=== PATIENT | female | born 1930 | race Caucasian/White ===

== ENCOUNTER 2019-03-27 16:42 | Inpatient (IN) | payer MEDICARE, OTHER, MEDICAID ==
[2019-03-27 17:29] LABS: ADD MAN DIFF? NO
[2019-03-27 17:33] LABS: WHITE BLOOD COUNT 15.1 10^3/ul (4.8-10.8)
[2019-03-27 17:33] LABS: BASOPHIL # 0.1 10^3/ul (0.0-0.1); BASOPHILS % 0.3 % (0.0-2.0); EOSINOPHILS # 0.2 10^3/ul (0.0-0.5); EOSINOPHILS % 1.6 % (0.0-7.0); HEMOGLOBIN 11.1 g/dl (12.0-16.0); LYMPHOCYTES # 1.8 10^3/ul (0.8-2.9); MEAN CORPUSCULAR HEMOGLOBIN 29.4 pg (29.0-33.0); MEAN CORPUSCULAR HGB CONC 30.8 g/dl (32.0-37.0); MEAN CORPUSCULAR VOLUME 95.2 fl (82.0-101.0); MEAN PLATELET VOLUME 11.3 fl (7.4-10.4); MONOCYTE # 1.2 10^3/ul (0.3-0.9); NEUTROPHIL # 11.7 10^3/ul (1.6-7.5); NEUTROPHILS % 77.7 % (39.0-77.0); PLATELET COUNT 518 10^3/UL (140-415); RED BLOOD COUNT 3.78 10^6/ul (4.20-5.40); RED CELL DISTRIBUTION WIDTH 17.5 % (11.5-14.5)
[2019-03-27] MEDS: SOD CHLORIDE 0.9% 500 ML IV (17:41)
[2019-03-27 17:51] LABS: ALANINE AMINOTRANSFERASE 8 IU/L (13-69); ALBUMIN 2.8 g/dl (3.3-4.9); ALKALINE PHOSPHATASE 165 IU/L (42-121); ANION GAP 5 (5-13); ASPARTATE AMINO TRANSFERASE 22 IU/L (15-46); BILIRUBIN,INDIRECT 0.1 mg/dl (0-1.1); BILIRUBIN,TOTAL 0.1 mg/dl (0.2-1.3); BLOOD UREA NITROGEN 26 mg/dl (7-20); CALCIUM 10.2 mg/dl (8.4-10.2); CARBON DIOXIDE 27 mmol/L (21-31); CHLORIDE 110 mmol/L (97-110); CREATININE 0.76 mg/dl (0.44-1.00); GLUCOSE 130 mg/dl (70-220); LIPASE 26 U/L (23-300); POTASSIUM 4.6 mmol/L (3.5-5.1); SODIUM 142 mmol/L (135-144); TOTAL PROTEIN 7.4 g/dl (6.1-8.1)
[2019-03-27 18:02] LABS: TROPONIN-I < 0.012 ng/ml (0.000-0.120)
[2019-03-27 18:13] LABS: ADD UMIC YES; UR ASCORBIC ACID 20 mg/dL (NEGATIVE); UR BACTERIA MODERATE /HPF (NONE SEEN); UR BILIRUBIN (Dip) NEGATIVE (NEGATIVE); UR BLOOD (Dip) 1+ mg/dL (NEGATIVE); UR BUDDING YEAST FEW /HPF (NONE SEEN); UR CLARITY TURBID (CLEAR); UR COLOR YELLOW (YELLOW); UR GLUCOSE (Dip) NEGATIVE (NEGATIVE); UR KETONES (Dip) NEGATIVE (NEGATIVE); UR LEUKOCYTE ESTERASE (Dip) 3+ Leu/ul (NEGATIVE); UR MUCUS MODERATE /HPF (NONE SEEN); UR NITRITE (Dip) NEGATIVE (NEGATIVE); UR NONSQUAMOUS EPITHELIAL CELL 2 /HPF (NONE SEEN); UR RBC 44 /HPF (0-5); UR SPECIFIC GRAVITY (Dip) 1.018 (1.003-1.030); UR SQUAMOUS EPITHELIAL CELL MODERATE /HPF (FEW); UR TOTAL PROTEIN (Dip) 2+ mg/dl (NEGATIVE); UR UROBILINOGEN (Dip) NEGATIVE (NEGATIVE); UR WBC > 182 /HPF (0-5)
[2019-03-27] MEDS ORDERED: CEFTRIAXONE 1 GM/50 ML (PMX) 50 ML IVPB (18:30)
[2019-03-27] MEDS: AZTREONAM 2 GM in SOD CHLORIDE 0.9% 100 ML IVPB ×2 (18:57→22:42)
[2019-03-27] MEDS: VANCOMYCIN 1 GM (PMX) 250 ML IVPB (19:03)
[2019-03-27] MEDS ORDERED: PROPOFOL 100 ML (19:24)
[2019-03-27] MEDS: PROPOFOL 100 ML IV (19:26)
[2019-03-27] MEDS: AMIODARONE 150MG/D5W BOLUS 100 ML IV (19:30)
[2019-03-27] MEDS ORDERED: NORepinephrine 8MG/250 ML (PMX 250 ML (19:30)
[2019-03-27] MEDS: NORepinephrine 8MG/250 ML (PMX 250 ML IV (19:35)
[2019-03-27] MEDS ORDERED: AMIODARONE 150 MG INJ (20:00)
[2019-03-27] MEDS ORDERED: DEXTROSE 50% 50 ML SYRINGE (20:00)
[2019-03-27] MEDS ORDERED: NA BICARBONATE 8.4% 50 ML SYG (20:00)
[2019-03-27] MEDS ORDERED: EPINEPHrine 10 MCG/1ml (10 ML SYG) IV (20:00)
[2019-03-27] MEDS ORDERED: CA CHLORIDE 10% 10 ML SYRINGE (20:00)
[2019-03-27] MEDS: FENTAnyl 50 MCG/ML VIAL IV (20:47)
[2019-03-27] MEDS: FENTAnyl (DRIP) 1000 mcg/100mL 100 ML IV (21:19)
[2019-03-27 21:23] LABS: AADO2 Arterial 361.3 mmHg (7.0-24.0); Arterial Base Excess -5.8 mmol/L (-3.0-3); Arterial Blood Gas Oxygen Sat 99.6 mmHG (95.0-100.0); Arterial COHb 0.2 % (0.0-3.0); Arterial Fraction of Oxyhgb 99.2 % (93.0-99.0); Arterial HCO3 18.9 mmol/L (22.0-26.0); Arterial MetHb 0.2 % (0.0-1.5); Arterial pCO2 34.4 mmhg (35-45); MODE VENT - AC; Site Right Brachial
[2019-03-27] MEDS: VASOPRESSIN 60 UNIT in SOD CHLORIDE 0.9% 57 ML IV (22:54)
[2019-03-27] MEDS: AMIODARONE 900 MG in DEXTROSE 5% 482 ML IV ×2 (23:09→23:51)
[2019-03-28] MEDS: PROPOFOL 100 ML IV (02:30)
[2019-03-28] MEDS: VASOPRESSIN 60 UNIT in DEXTROSE 5% 57 ML IV (03:30)
[2019-03-28] MEDS ORDERED: EPINEPHrine 4 MG in DEXTROSE 5% 246 ML IV (03:30)
[2019-03-28] MEDS ORDERED: PHENYLephrine 80 MG in DEXTROSE 5% 242 ML IV (03:30)
[2019-03-28] MEDS ORDERED: DEXTROSE 50% 50 ML SYRINGE IV ×2 (04:00)
[2019-03-28] MEDS ORDERED: FENTAnyl (DRIP) 1000 mcg/100mL 100 ML IV (04:00)
[2019-03-28] MEDS ORDERED: GLUCOSE GEL 15 GRAM TUBE PO ×2 (04:00)
[2019-03-28] MEDS ORDERED: GLUCOSE GEL 15 GRAM TUBE BUCCAL (04:00)
[2019-03-28] MEDS ORDERED: GLUCAGON 1 MG INJ IM (04:00)
[2019-03-28] MEDS: SOD CHLORIDE 0.9% 1,000 ML IV (04:26)
[2019-03-28] MEDS: NORepinephrine 8MG/250 ML (PMX 250 ML IV (04:27)
[2019-03-28] MEDS ORDERED: VANCOMYCIN IV PER PHARMACY XX (04:30)
[2019-03-28] MEDS: PIPER-TAZO 3.375 GM IV (PMX) 100 ML IVPB (05:56)
[2019-03-28] MEDS: INSULIN ASPART [NOVOLOG] 3 ML PEN SC (05:57)
[2019-03-28] MEDS ORDERED: SOD CHLORIDE 0.9% IV (06:00)
[2019-03-28] MEDS ORDERED: EPINEPHRINE IV (06:00)
[2019-03-28] MEDS ORDERED: PANTOPRAZOLE 40 MG INJ IV (06:00)
[2019-03-28 07:24] LABS: AADO2 Arterial 129.9 mmHg (7.0-24.0); Allen Test ACCEPTAB; Arterial Base Excess -13.2 mmol/L (-3.0-3); Arterial Blood Gas Oxygen Sat 97.7 mmHG (95.0-100.0); Arterial COHb 0.3 % (0.0-3.0); Arterial Fraction of Oxyhgb 97.3 % (93.0-99.0); Arterial MetHb 0.1 % (0.0-1.5); Arterial pCO2 31.2 mmhg (35-45); MODE VENT - AC; Site Left Radial
[2019-03-28 07:34] LABS: ABNORMAL IP MESSAGE 1; HEMATOCRIT 33.8 % (37.0-47.0); HEMOGLOBIN 9.9 g/dl (12.0-16.0); MEAN CORPUSCULAR HEMOGLOBIN 29.6 pg (29.0-33.0); MEAN CORPUSCULAR HGB CONC 29.3 g/dl (32.0-37.0); MEAN CORPUSCULAR VOLUME 100.9 fl (82.0-101.0); MEAN PLATELET VOLUME 11.2 fl (7.4-10.4); NUCLEATED RED BLOOD CELLS% 0.1 /100WBC (0.0-0.0); PLATELET COUNT 397 10^3/UL (140-415); RED BLOOD COUNT 3.35 10^6/ul (4.20-5.40); RED CELL DISTRIBUTION WIDTH 17.9 % (11.5-14.5)
[2019-03-28 07:34] LABS: WHITE BLOOD COUNT 36.3 10^3/ul (4.8-10.8)
[2019-03-28 07:47] LABS: ADD MAN DIFF? YES; POSITIVE DIFF @See below
[2019-03-28 08:00] LABS: ALANINE AMINOTRANSFERASE 20 IU/L (13-69); ALBUMIN 2.4 g/dl (3.3-4.9); ALBUMIN/GLOBULIN RATIO 0.64; ALKALINE PHOSPHATASE 154 IU/L (42-121); ANION GAP 15 (5-13); ASPARTATE AMINO TRANSFERASE 62 IU/L (15-46); BILIRUBIN,INDIRECT 0.1 mg/dl (0-1.1); BILIRUBIN,TOTAL 0.1 mg/dl (0.2-1.3); BLOOD UREA NITROGEN 27 mg/dl (7-20); CALCIUM 10.3 mg/dl (8.4-10.2); CARBON DIOXIDE 16 mmol/L (21-31); CHLORIDE 114 mmol/L (97-110); CREATININE 1.21 mg/dl (0.44-1.00); GLUCOSE 199 mg/dl (70-220); MAGNESIUM 2.1 mg/dl (1.7-2.5); SODIUM 145 mmol/L (135-144); TOTAL PROTEIN 6.1 g/dl (6.1-8.1)
[2019-03-28 08:02] LABS: LACTIC ACID 11.3 mmol/L (0.5-2.0)
[2019-03-28] MEDS: FAMOTIDINE 20 MG INJ IV (08:41)
[2019-03-28] MEDS: VANCOMYCIN 500 MG (PMX) 100 ML IVPB (08:41)
[2019-03-28] MEDS ORDERED: ATROPINE 1 MG/10 ML SYRINGE (09:55)
[2019-03-28] MEDS: NORepinephrine 32 MG in DEXTROSE 5% 218 ML IV (09:57)
[2019-03-28] MEDS ORDERED: DOPamine-D5W 1.6 MG/ML 250 ML IV (10:00)
[2019-03-28] MEDS ORDERED: ATROPINE 1 MG INJ IV (10:00)
[2019-03-28] MEDS: DOPamine-D5W 1.6 MG/ML 250 ML IV (10:55)
[2019-03-28] MEDS: ATROPINE 1 MG/10 ML SYRINGE IV (10:56)
[2019-03-28 11:18] LABS: ANISOCYTOSIS 1+ (0-0); BAND NEUTROPHILS #M 9.4 10^3/ul (0.0-0.6); BAND NEUTROPHILS % (M) 26 % (0-4); BURR CELLS 1+ (0-0); EOSINOPHILS % (M) 1 % (0-7); GIANT THROMBO% (M) 1 % (0-0); LYMPHOCYTES #M 3.2 10^3/ul (0.8-2.9); LYMPHOCYTES % (M) 9 % (15-51); MONOCYTE #M 2.5 10^3/ul (0.3-0.9); MONOCYTES % (M) 7 % (0-11); PLATELET ESTIMATE NORMAL; POIKILOCYTOSIS 2+ (0-0); POLYCHROMASIA 3+ (0-0); SEG NEUT #M 24.1 10^3/ul (1.6-7.5); SEGMENTED NEUTROPHILS (M) % 57 % (39-77); SMUDGE%M 7 % (0-0)
[2019-03-28] MEDS ORDERED: VANCOMYCIN HCL 1.5 GM in SOD CHLORIDE 0.9% 250 ML IVPB (12:00)
[2019-03-29] MEDS ORDERED: VANCOMYCIN 1 GM 250 ML IVPB (09:00)
== END 2019-03-28 12:05 | disposition expired | DRG 872 ==
LOC: ICU 19:35 → E/R 16:42
PROC: 0BH17EZ Insertion of Endotracheal Airway into Trachea, Via Natural or Artificial Opening (ICD-10-PCS; principal; 2019-03-27)
PROC: 5A1935Z Respiratory Ventilation, Less than 24 Consecutive Hours (ICD-10-PCS; 2019-03-27)
PROC: 4A133R1 Monitoring of Arterial Saturation, Peripheral, Percutaneous Approach (ICD-10-PCS; 2019-03-27)
PROC: 05H633Z Insertion of Infusion Device into Left Subclavian Vein, Percutaneous Approach (ICD-10-PCS; 2019-03-27)
DX: A41.9 Sepsis, unspecified organism (principal); N39.0 Urinary tract infection, site not specified; L03.211 Cellulitis of face; F03.91 Unspecified dementia, unspecified severity, with behavioral disturbance; I47.2 Ventricular tachycardia; R65.20 Severe sepsis without septic shock; Z66 Do not resuscitate; I46.9 Cardiac arrest, cause unspecified; I10 Essential (primary) hypertension; E11.42 Type 2 diabetes mellitus with diabetic polyneuropathy; E78.5 Hyperlipidemia, unspecified; Z86.14 Personal history of Methicillin resistant Staphylococcus aureus infection; Z85.3 Personal history of malignant neoplasm of breast; Z90.11 Acquired absence of right breast and nipple; M81.0 Age-related osteoporosis without current pathological fracture; Z79.82 Long term (current) use of aspirin; Z88.0 Allergy status to penicillin; Z88.2 Allergy status to sulfonamides
CPT/HCPCS: 31500; 36415; 36600; 71045; 80053; 81001; 82803; 82962; 83605; 83690; 83735; 84100; 84484; 85025; 87040-91; 87081; 92950; 93005; 94002; 94003; 94770; 99285-25